=== PATIENT | female | born 1960 ===

== ENCOUNTER → 2023-09-18 | Outpatient (CLI) | payer SELFPAY ==
[2023-09-18 17:04] LABS: BASOPHILS ABSOLUTE AUTO 0.05 K/mm3 (0.00-0.23); BASOPHILS PERCENT AUTO 1 % (0-2); EOSINOPHILS ABSOLUTE AUTO 0.14 K/mm3 (0.00-0.68); EOSINOPHILS PERCENT AUTO 2 % (0-6); Hematocrit 42.8 % (33.0-51.0); Hemoglobin 14.2 g/dL (11.5-16.0); IMMATURE GRAN ABSOLUTE AUTO 0.02 K/mm3 (0.00-0.10); IMMATURE GRAN PERCENT AUTO 0 % (0-1); LYMPHOCYTES ABSOLUTE AUTO 1.94 K/mm3 (0.84-5.20); LYMPHOCYTES PERCENT AUTO 32 % (21-46); MONOCYTES ABSOLUTE AUTO 0.53 K/mm3 (0.16-1.47); MONOCYTES PERCENT AUTO 9 % (4-13); Mean Corpuscular HGB 28.7 pg (26.0-34.0); Mean Corpuscular HGB Conc 33.2 g/dL (31.5-36.5); Mean Corpuscular Volume 87 fL (80-100); Mean Platelet Volume 10.9 fL (9.1-12.4); NEUTROPHILS ABSOLUTE AUTO 3.31 K/mm3 (1.96-9.15); NEUTROPHILS PERCENT AUTO 55 % (41-73); Platelet Count 202 K/mm3 (150-400); RDW Standard Deviation 40.9 fL (35.1-46.3); Red Blood Cell Count 4.94 M/mm3 (3.80-5.20); White Blood Cell Count 5.99 K/mm3 (4.00-11.30)
[2023-09-18 17:38] LABS: Alanine Aminotransfer (ALT/SGP 56 U/L (12-78); Albumin, Blood 4.1 g/dL (3.4-5.0); Albumin/Globulin Ratio 1.3 (0.8-1.8); Alk Phos 101 U/L (50-136); Anion Gap 7 mmol/L (3-11); Aspartate Aminotrans (AST/SGOT 28 U/L (12-37); Bilirubin, Total 0.5 mg/dL (0.1-1.0); Blood Urea Nitrogen 11 mg/dL (8-24); Bun/Creatinine Ratio 15.4 (12.0-20.0); CHOL/HDL RATIO 3.6; CO2, Blood 26 mmol/L (21-32); Calcium, Blood 9.1 mg/dL (8.5-10.1); Chloride, Blood 112 mmol/L (98-108); Cholesterol 176 mg/dL (50-200); Creatinine, Blood 0.71 mg/dL (0.40-1.00); Globulin, Blood 3.2 g/dL (2.2-4.0); Glomerular Filtration Rate 94 (60-); Glucose, Blood 117 mg/dL (70-99); HDL Cholesterol 49 mg/dL (>39); LDL/HDL RATIO 1.5; Low Density Lipoprotein Chol 75 mg/dL (0-110); Potassium, Blood 3.7 mmol/L (3.5-5.5); Sodium, Blood 141 mmol/L (136-145); Thyroid Stimulating Hormone 0.692 uIU/mL (0.360-4.800); Total Protein, Blood 7.3 g/dL (6.4-8.2); Triglycerides 260 mg/dL (30-160); Very Low Density Lipoprot Chol 52 mg/dL (6-32)
== END ==
LOC: LAB 10:19 → LAB SHORT 10:19
PROVIDERS: Internal Medicine Rheumatology
DX: I10 Essential (primary) hypertension (principal); E78.00 Pure hypercholesterolemia, unspecified
CPT/HCPCS: 80053; 80061; 84443; 85025